=== PATIENT | female | born 2000 | race Caucasian/White ===

== ENCOUNTER 2023-03-08 20:51 | Emergency (ER) | payer OTHER ==
[2023-03-08 21:20] LABS: BASOPHILS % (AUTO) 0.3 %; EOSINOPHILS # (AUTO) 0.2 10^3/uL (0.0-0.7); EOSINOPHILS % (AUTO) 1.8 %; HCT - HEMATOCRIT 43.3 % (37.0-47.0); HGB - HEMOGLOBIN 14.5 g/dL (12.0-16.0); LYMPHOCYTES # (AUTO) 2.9 10^3/uL (1.5-3.5); LYMPHOCYTES % (AUTO) 24.5 %; MEAN CORPUSCULAR HEMOGLOBIN 30.1 pg (27.0-31.0); MEAN CORPUSCULAR HGB CONC 33.5 g/dL (32.0-36.0); MEAN CORPUSCULAR VOLUME 89.8 fL (81.0-99.0); MONOCYTES # (AUTO) 0.7 10^3/uL (0.0-1.0); MONOCYTES % (AUTO) 6.3 %; NEUTROPHILS # (AUTO) 7.8 10^3/uL (1.5-6.6); NEUTROPHILS % (AUTO) 66.8 %; PLT - PLATELET COUNT 313 10^3/uL (130-450); RED BLOOD COUNT 4.82 10^6/uL (4.20-5.40); RED CELL DISTRIBUTION WIDTH 11.9 % (12.0-15.0); WHITE BLOOD COUNT 11.6 x10^3/uL (4.8-10.8)
[2023-03-08 21:24] LABS: BILIRUBIN,URINE NEGATIVE (NEGATIVE); GLUCOSE, URINE (UA) NEGATIVE (NEGATIVE); KETONES,URINE (UA) NEGATIVE (NEGATIVE); LEUKOCYTE ESTERASE, URINE NEGATIVE (NEGATIVE); NITRITE,URINE NEGATIVE (NEGATIVE); OCCULT BLOOD,URINE NEGATIVE (NEGATIVE); PH,URINE 7.5 PH (5.0-7.5); PROTEIN,URINE NEGATIVE (NEGATIVE); UROBILINOGEN,URINE 0.2 (NORMAL) E.U./dL (NORMAL)
[2023-03-08 21:30] LABS: CLARITY,URINE CLOUDY (CLEAR); HCG UR QUAL NEGATIVE; RBC,URINE None Seen /HPF (0-5); SQUAMOUS EPITHELIAL CELL,UR FEW Squamous (<= Few); WBC,URINE 0-3 /HPF (0-5)
[2023-03-08 21:31] LABS: AMORPHOUS SEDIMENT,UR Marked /LPF; BACTERIA,URINE None Seen /HPF (None Seen)
[2023-03-08 21:33] LABS: ALBUMIN 4.7 g/dL (3.2-5.5); ALBUMIN/GLOBULIN RATIO 1.2 (1.0-2.2); BILIRUBIN,TOTAL 0.6 mg/dL (0.2-1.0); CALCIUM 9.7 mg/dL (8.5-10.3); CREATININE 0.6 mg/dL (0.4-1.0); POTASSIUM 3.4 mmol/L (3.5-5.0); TOTAL PROTEIN 8.7 g/dL (6.7-8.2)
--- NOTE | 2023-03-08 22:15 | ED Physician Documentation ---
PD HPI ABD PAIN - Stated complaint Stated Complaint: ABD PX - Chief complaint Chief Complaint: Abd Pain - History obtained from History obtained from: Patient - Additional information Additional information: HPI from patient. Patient complains of left lower quadrant and suprapubic abdominal pain. Patient says the pain started "a couple of weeks ago", but has become steadily worse over the past 2 days. The pain is worse with movement such as bending forward, ameliorated with rest. She denies nausea, vomiting. She denies fever. She has not had similar symptoms in the past. No surgical history, although she does have an IUD. Review of Systems Constitutional: denies: Fever, Chills, Sweats Cardiac: reports: Reviewed and negative Respiratory: reports: Reviewed and negative GI: reports: Abdominal Pain. denies: Nausea, Vomiting, Constipation, Diarrhea : denies: Dysuria, Frequency PD PAST MEDICAL HISTORY - Past Medical History Past Medical History: No - Present Medications Home Medications: Ambulatory Orders Medication Instructions Recorded Confirmed No Known Home Medications 03/08/23 03/08/23 - Allergies Allergies/Adverse Reactions: Allergies Allergy/AdvReac Type Severity Reaction Status Date / Time No Known Drug Allergies Allergy Verified 03/08/23 20:54 PD ED PE NORMAL - Vitals Vital signs reviewed: Yes - General General: Alert and oriented X 3, No acute distress, Well developed/nourished - Cardiac Cardiac: RRR, No murmur - Respiratory Respiratory: No respiratory distress, Clear bilaterally - Abdomen Abdomen: Soft, Non distended, Other (tenderness to palpation of LLQ and suprapubic area of abdomen/pelvis. no rebound, no guarding) - Derm Derm: Normal color, Warm and dry, No rash Results - Vitals Vitals: Oxygen O2 Source Room air - Labs Labs: Laboratory Tests 03/08/23 03/08/23 03/08/23 21:08 21:15 21:15 WBC 11.6 H RBC 4.82 Hgb 14.5 Hct 43.3 MCV 89.8 MCH 30.1 MCHC 33.5 RDW 11.9 L Plt Count 313 MPV 10.0 Neut # (Auto) 7.8 H Lymph # (Auto) 2.9 Gaines # (Auto) 0.7 Eos # (Auto) 0.2 Baso # (Auto) 0.0 Absolute Nucleated RBC 0.00 Nucleated RBC % 0.0 Sodium 140 Potassium 3.4 L Chloride 103 Carbon Dioxide 28 Anion Gap 9.0 BUN 15 Creatinine 0.6 Estimated GFR (MDRD) 125 Glucose 97 Calcium 9.7 Total Bilirubin 0.6 AST 20 ALT 26 Alkaline Phosphatase 66 Total Protein 8.7 H Albumin 4.7 Globulin 4.0 Albumin/Globulin Ratio 1.2 Lipase 36 Urine Color YELLOW Urine Clarity CLOUDY Urine pH 7.5 Ur Specific [place] 1.020 Urine Protein NEGATIVE Urine Glucose (UA) NEGATIVE Urine Ketones NEGATIVE Urine Occult Blood NEGATIVE Urine Nitrite NEGATIVE Urine Bilirubin NEGATIVE Urine Urobilinogen 0.2 (NORMAL) Ur Leukocyte Esterase NEGATIVE Urine RBC None Seen Urine WBC 0-3 Ur Squamous Epith Cells FEW Squamous Amorphous Sediment Marked Urine Bacteria None Seen Ur Microscopic Review INDICATED Urine Culture Comments NOT INDICATED Urine HCG, Qual NEGATIVE - Rads (name of study) CT A/P with IV contrast Relevant Findings:: Prelim report reviewed, See rad report PD Medical Decision Making - ED course Complexity details: reviewed results, re-evaluated patient, considered differential, d/w patient ED course: Tests ordered with results reviewed by me: CBC, ear abdominal panel, urinalysis, urine test. There are no remarkable/concerning/diagnostic findings on these tests. Incidental note is made of minimal hypokalemia (3.4) and mild leukocytosis (11.6 WBC). Patient declines analgesics on initial H&P. CT of the abdomen and pelvis with intravenous contrast is ordered due to the significant tenderness palpation on exam. CT interpreted by radiology as mild segmental wall thickening of the colon with minimal fat stranding suggestive of mild colitis. IUD in correct position. There is no evidence of diverticulosis/diverticulitis. Patient denies diarrhea and denies recent antibiotic use (past 1-2 months). While the inflammation on CT does correlate with area of pain/tenderness, the cause of the CT findings/colitis is not apparent at this time; IBD considered although would seem unlikely without any diarrhea/loose stool. Infectious would also seem unlikely with length of symptoms (weeks), lack of diarrhea, minimally elevated WBC. Ischemic colitis unlikely (pain is not out of proportion to findings; patient is declining analgesia, is in NAD, and exam is mild TTP without rebound/guarding) and absence of obvious risk factors. Results d/w patient, return precautions reviewed. Advised to contact PMD in the morning to arrange for next available appointment for reevaluation. Departure - Departure Disposition: 01 Home, Self Care Clinical Impression: Abdominal pain Qualifiers: Abdominal location: left lower quadrant Qualified Code(s): R10.32 - Left lower quadrant pain Condition: Good Instructions: ED Abdominal Pain Female Non-Specific Abdominal Pain Comments: There were no concerning or diagnostic findings on tonight's test. As we discussed, your potassium was just below the normal range (3.4); this is a concerning finding, but you should mention this to your primary care provider the next time that you follow-up with them. The CT scan shows some inflammatory changes of your colon in an area that would correlate with where your tenderness is (the left lower quarter of your abdomen). This is a nonspecific finding; in other words, it is not a specific diagnosis. There are several different causes of colitis (colon inflammation). While viral and bacterial infections can cause colitis, these are unlikely given that you have not had any diarrhea. Inflammatory bowel disease is still a possibility (such as Crohn's disease or ulcerative colitis). Such a diagnosis requires further testing then the emergency department can undertake. Contact your primary care provider in the morning to arrange for the next available appointment for follow-up. Certainly, if your symptoms worsen, or if you develop new/concerning signs/symptoms (such as fever, diarrhea, blood in your stool, worsening abdominal pain), you can always return to the emergency department for reevaluation. Discharge Date/Time: 03/09/23 01:05
--- NOTE | 2023-03-08 23:34 | CT Report ---
PROCEDURE: ABDOMEN/PELVIS W INDICATIONS: LLQ abd. pain/tenderness CONTRAST: 100mL Omni 350 TECHNIQUE: After the administration of intravenous contrast, 5 mm thick sections acquired from the diaphragms to the symphysis. 5 mm thick coronal and sagittal reformats were acquired. For radiation dose reducti on, the following was used: automated exposure control, adjustment of mA and/or kV according to marbella ent size. COMPARISON: None. FINDINGS: Image quality: Excellent. Lung bases:There is mild dependent atelectasis. Heart: Heart is normal in size. ABDOMEN: Liver: No mass lesion. Gallbladder: Within normal limits without calcified gallstones. Biliary ducts: No biliary ductal dilatation. Pancreas: Unremarkable. Spleen: Normal in size. Adrenal Glands: No adrenal nodules. Kidneys and Ureters: No hydronephrosis. Stomach and Bowel: Stomach and small bowel loops are normal in caliber and wall thickness. No perice kristen inflammatory changes to suggest appendicitis. The visualized appendix appears normal. There is mi ld segmental wall thickening in the sigmoid colon with minimal pericolonic fat stranding suggestive o f a mild colitis. Peritoneum:There is minimal free fluid in the pelvis which appears within physiologic limits. No terry e air. Ventral Wall: No hernia. Abdominal Nodes: No retroperitoneal or mesenteric adenopathy by size criteria. Vessels: Aorta and inferior vena cava are normal in size. PELVIS: Pelvic Organs:An IUD is demonstrated within the uterus. Bladder: Unremarkable. Pelvic Nodes: No enlarged lymph nodes. Miscellaneous: No inguinal hernias. Bones: Visualized osseous structures demonstrate no suspicious lesions. IMPRESSION: 1. Mild segmental wall thickening in the sigmoid colon with minimal fat stranding suggestive of a mil d colitis. Reviewed by: Reggie Norwood MD on 03/08/2023 11:48 PM PDT Approved by: Reggie Norwood MD on 03/08/2023 11:48 PM PDT Station ID: [id number]
[2023-03-09 01:08] VITALS: BP 125/76
== END 2023-03-09 01:05 | disposition home or self-care (01) ==
LOC: ED 20:51
DX: R10.32 Left lower quadrant pain (principal)
CPT/HCPCS: 36415; 74177; 80053; 81001; 81025; 83690; 85025; 99283; 99284; Q9967; 81003; 87086

== ENCOUNTER 2023-11-14 08:00 | Outpatient (CLI) | payer OTHER ==
[2023-11-14 17:01] LABS: BILIRUBIN,URINE NEGATIVE (NEGATIVE); GLUCOSE, URINE (UA) NEGATIVE (NEGATIVE); KETONES,URINE (UA) NEGATIVE (NEGATIVE); LEUKOCYTE ESTERASE, URINE NEGATIVE (NEGATIVE); NITRITE,URINE NEGATIVE (NEGATIVE); OCCULT BLOOD,URINE NEGATIVE (NEGATIVE); PH,URINE 5.5 PH (5.0-7.5); PROTEIN,URINE NEGATIVE (NEGATIVE); UROBILINOGEN,URINE 0.2 (NORMAL) E.U./dL (NORMAL)
[2023-11-14 17:09] LABS: AMORPHOUS SEDIMENT,UR Marked /LPF; BACTERIA,URINE Rare /HPF (None Seen); CLARITY,URINE TURBID (CLEAR); RBC,URINE None Seen /HPF (0-5); SQUAMOUS EPITHELIAL CELL,UR FEW Squamous (<= Few); WBC,URINE 0-3 /HPF (0-5)
[2023-11-14 17:10] LABS: CRYSTALS,URINE 0-2 Calcium Oxalate /LPF
== END 2023-11-14 23:59 | disposition home or self-care (01) ==
LOC: LAB.WC 08:00
PROVIDERS: ATTEND Nurse Practitioner
DX: Z34.90 Encounter for supervision of normal pregnancy, unspecified, unspecified trimester (principal)
CPT/HCPCS: 81001; 87086

== ENCOUNTER 2023-11-14 16:44 | Outpatient (CLI) | payer OTHER ==
[2023-11-14 21:13] LABS: BASOPHILS % (AUTO) 0.4 %; EOSINOPHILS # (AUTO) 0.1 10^3/uL (0.0-0.7); EOSINOPHILS % (AUTO) 1.3 %; HCT - HEMATOCRIT 37.6 % (37.0-47.0); HGB - HEMOGLOBIN 12.7 g/dL (12.0-16.0); LYMPHOCYTES # (AUTO) 2.5 10^3/uL (1.5-3.5); LYMPHOCYTES % (AUTO) 26.9 %; MEAN CORPUSCULAR HEMOGLOBIN 30.5 pg (27.0-31.0); MEAN CORPUSCULAR HGB CONC 33.8 g/dL (32.0-36.0); MEAN CORPUSCULAR VOLUME 90.4 fL (81.0-99.0); MEAN PLATELET VOLUME 11.5 fL (7.9-10.8); MONOCYTES # (AUTO) 0.6 10^3/uL (0.0-1.0); MONOCYTES % (AUTO) 6.9 %; NEUTROPHILS # (AUTO) 5.9 10^3/uL (1.5-6.6); NEUTROPHILS % (AUTO) 64.3 %; PLT - PLATELET COUNT 263 10^3/uL (130-450); RED BLOOD COUNT 4.16 10^6/uL (4.20-5.40); RED CELL DISTRIBUTION WIDTH 11.9 % (12.0-15.0); WHITE BLOOD COUNT 9.2 x10^3/uL (4.8-10.8)
[2023-11-16 04:09] LABS: HBsAG SCREEN Negative (Negative)
[2023-11-16 06:10] LABS: RPR Non Reactive (Non Reactive)
[2023-11-16 07:10] LABS: HCV AB Non Reactive (Non Reactive); HIV SCREEN 4TH GENERATION Non Reactive (Non Reactive)
[2023-11-16 09:10] LABS: VARICELLA-ZOSTER AB IGG 459 index (Immune >165)
== END 2023-11-14 16:45 | disposition home or self-care (01) ==
LOC: LAB.N 16:44
PROVIDERS: ATTEND Nurse Practitioner
DX: Z34.90 Encounter for supervision of normal pregnancy, unspecified, unspecified trimester (principal)
CPT/HCPCS: 36415; 81001; 85025; 86592; 86762; 86787; 86803; 86850; 86900; 86901; 87086; 87340; 87389

== ENCOUNTER 2023-11-22 11:53 | Outpatient (CLI) | payer OTHER ==
--- NOTE | 2023-11-22 19:11 | Ultrasound Report ---
PROCEDURE: OB 1st Trimester w/TV INDICATIONS: POSITIVE TEST OUTSIDE/PRIOR DATING DATA: Last menstrual period (LMP): 09/17/2023. LMP-based estimated date of delivery (MARIBEL): 06/23/2024. First dating scan (date and location): 11/22/2023. Estimated date of delivery (MARIBEL) from first dating scan: 07/09/2024. TECHNIQUE: Real-time scanning was performed of the fetus and maternal pelvic organs, with image documentation. Endovaginal scanning was also performed to better visualize the fetus and maternal ovaries. COMPARISON: None. FINDINGS: Yolk sac is seen. Intrauterine gestation measures 1.09 cm. Ultrasound age of 7 weeks and 1 day. Heart rate is 153 bpm. Adnexal structures within normal limits. IMPRESSION: Living intrauterine gestation at 7 weeks and 1 day. This is not concordant with reported LMP, clinica l correlation advised. Reviewed by: Tye Chapa MD on 11/22/2023 7:09 PM PST Approved by: Tye Chapa MD on 11/22/2023 7:09 PM PST Station ID: [id number]
== END 2023-11-22 11:54 | disposition home or self-care (01) ==
LOC: DI 11:53
PROVIDERS: ATTEND Nurse Practitioner
DX: Z34.91 Encounter for supervision of normal pregnancy, unspecified, first trimester (principal)

== ENCOUNTER 2023-12-29 13:43 | Outpatient (CLI) | payer OTHER | END 2023-12-29 13:44 | disposition home or self-care (01) | LOC: LAB 13:43 | PROVIDERS: ATTEND Nurse Practitioner | DX: Z34.90 Encounter for supervision of normal pregnancy, unspecified, unspecified trimester (principal) ==

== ENCOUNTER 2024-02-20 12:41 | Outpatient (CLI) | payer OTHER ==
--- NOTE | 2024-02-20 16:00 | Ultrasound Report ---
PROCEDURE: OB Anatomy Scan INDICATIONS: SUPERVISION OF OUTSIDE/PRIOR DATING DATA: Last menstrual period (LMP): 09/17/2023. LMP-based estimated date of delivery (MARIBEL): 06/23/2024. First dating scan (date and location): 11/22/2023. Estimated date of delivery (MARIBEL) from first dating scan: 07/09/2024. The below data below was generated using the ultrasound MARIBEL of 07/09/2024 TECHNIQUE: Real-time scanning was performed of the fetus, with image documentation and biometric measurements. Endovaginal scanning: Not performed. COMPARISON: None. FINDINGS: General: A single living intrauterine gestation is present. Presentation: Vertex Placenta: Placental position is anterior, without previa. Amniotic fluid index: 16.0 cm, within normal limits for gestational age. heart rate: 137 beats per minute. Maternal cervical canal: 5.2 cm long; normal length is 2.5 cm or more. biometrics: Biparietal diameter: 4.9 cm, 20 weeks 6 days, 80.7% Head circumference: 18.0 cm, 20 weeks 3 days, 63.3% Abdominal circumference: 15.6 cm, 20 weeks 5 days, 70.3% Femur length: 3.4 cm, 20 weeks 4 days, 63.2% Estimated gestational age from initial scan: 20 weeks 0 days Composite gestational age from present scan: 20 weeks 5 days Estimated weight and percentile: 369 g, 82% Measurement variability in biometric dating: +/- 10 days from 12-20 weeks gestation, +/- 2 weeks from 20-30 weeks gestation, +/- 3 weeks at 30 weeks gestation or later. Anatomic survey: Neuro: Ventricles are normal at less than 10 mm. Cisterna magna is normal at 3-11 mm. Cerebellum i s normal in size and morphology. Nuchal skin fold: Normal at less than 6 mm between 14 and 20 weeks gestational age. Face: Nose and lips, facial profile are normal. Spine: No evidence for spina bifida. Heart: 4-chambered heart is present, with normal ventricular outflow tracts. Diaphragm: Diaphragm is intact. Stomach: Left-sided stomach is present. Kidneys: No hydronephrosis. Normal is less than 5 mm in 2nd trimester, less than 7 mm in 3rd trimester. Cord: 3 vessel cord has orthotopic insertion. Bladder: Normal in size. Extremities: All 4 extremities are visualized. IMPRESSION: 1. Single live intrauterine gestation with a composite gestational age of 20 weeks 5 days which is co ncordant with dates by initial scan. 2. Estimated weight percentile of 82%. 3. No sonographic anatomic abnormalities. Reviewed by: Cici Brito MD on 02/20/2024 3:59 PM PDT Approved by: Cici Brito MD on 02/20/2024 3:59 PM PDT Station ID: [id number]
== END 2024-02-20 12:42 | disposition home or self-care (01) ==
LOC: DI 12:41
PROVIDERS: ATTEND Nurse Practitioner
DX: Z34.92 Encounter for supervision of normal pregnancy, unspecified, second trimester (principal)

== ENCOUNTER 2024-04-06 07:32 | Outpatient (CLI) | payer OTHER ==
[2024-04-06 08:49] LABS: HCT - HEMATOCRIT 37.8 % (37.0-47.0); HGB - HEMOGLOBIN 12.3 g/dL (12.0-16.0); MEAN CORPUSCULAR HEMOGLOBIN 30.4 pg (27.0-31.0); MEAN CORPUSCULAR HGB CONC 32.5 g/dL (32.0-36.0); MEAN CORPUSCULAR VOLUME 93.6 fL (81.0-99.0); MEAN PLATELET VOLUME 10.4 fL (7.9-10.8); RED BLOOD COUNT 4.04 10^6/uL (4.20-5.40); RED CELL DISTRIBUTION WIDTH 12.7 % (12.0-15.0); WHITE BLOOD COUNT 12.3 x10^3/uL (4.8-10.8)
[2024-04-07 05:10] LABS: RPR Non Reactive (Non Reactive)
== END 2024-04-06 07:33 | disposition home or self-care (01) ==
LOC: LAB 07:32
PROVIDERS: ATTEND Nurse Practitioner
DX: Z34.90 Encounter for supervision of normal pregnancy, unspecified, unspecified trimester (principal)
CPT/HCPCS: 36415; 82950; 85027; 86592

== ENCOUNTER 2024-06-14 08:00 | Outpatient (CLI) | payer OTHER | END 2024-06-14 23:59 | disposition home or self-care (01) | LOC: LAB.WC 08:00 | PROVIDERS: ATTEND Nurse Practitioner | DX: Z34.90 Encounter for supervision of normal pregnancy, unspecified, unspecified trimester (principal) | CPT/HCPCS: 87797 ==